=== PATIENT | male | born 1930 | race Caucasian/White ===

== ENCOUNTER 2016-04-27 19:52 | Emergency (ER) | payer MEDICARE, BC ==
[2016-04-27 20:13] VITALS: RESP 20
[2016-04-27 21:08] LABS: Basophils % (A) 0 %; CH 31.9; CHCM 33.1; Eosinophils # (A) 0.1 k/uL (0-0.7); Eosinophils % (A) 2 %; HDW 2.59; HGB 14.5 gm/dL (13.0-17.5); Luc # (Auto) 0.09; Luc % (Auto) 1; Lymphocytes # (A) 0.7 k/uL (1.0-4.8); Lymphocytes % (A) 9 %; MCH 31.1 pg (25.0-35.0); MCHC 32.1 g/dL (31.0-37.0); MCV 96.9 fL (80.0-100.0); Mean Platelet Volume 7.4; Monocytes # (A) 0.3 k/uL (0-1.0); Monocytes % (A) 4 %; Neutrophils # (A) 6.4 k/uL (1.3-7.7); Neutrophils % (A) 84 %; RBC 4.65 m/uL (4.30-5.90); RDW 13.6 % (11.5-15.5); WBC 7.6 k/uL (3.8-10.6); WBC (Perox) 7.66
--- NOTE | 2016-04-27 21:11 | XR ---
EXAMINATION TYPE: XR chest 1V portable DATE OF EXAM: 04/27/2016 9:03 PM COMPARISON: 12/25/2013 HISTORY: Altered mental status TECHNIQUE: Single frontal view of the chest is obtained. FINDINGS: There is no heart failure nor confluent pneumonic infiltrate. There are no hilar masses. T here are sternal wires. Heart size is normal. There are chest leads. IMPRESSION: No active cardiopulmonary disease. There is clearing of pleural fluid on the left side c ompared to old exam.
[2016-04-27 21:16] LABS: ALT 36 U/L (21-72); AST 26 U/L (17-59); Alkaline Phosphatase 78 U/L (38-126); Anion Gap 9 mmol/L; Blood Urea Nitrogen 26 mg/dL (9-20); Calcium 9.4 mg/dL (8.4-10.2); Carbon Dioxide 29 mmol/L (22-30); Chloride 102 mmol/L (98-107); Glucose 89 mg/dL (74-99); Non-African American GFR(MDRD) 57 (>60 ml/min/1.73 sqM); Potassium 4.3 mmol/L (3.5-5.1); Sodium 140 mmol/L (137-145); Total Bilirubin 0.8 mg/dL (0.2-1.3)
[2016-04-27 21:22] LABS: Partial Thromboplastin Time 23.9 sec (22.0-30.0); Prothrombin Time 10.5 sec (9.0-12.0)
[2016-04-27 21:28] LABS: Creatine Kinase 43 U/L (55-170)
--- NOTE | 2016-04-27 21:32 | CT ---
EXAMINATION TYPE: CT brain wo con DATE OF EXAM: 04/27/2016 9:25 PM COMPARISON: 05/02/2015 HISTORY: Increased confusion. CT DLP: 995.50 mGycm Automated exposure control for dose reduction was used. FINDINGS: There is moderate patchy hypodensity in the periventricular white matter and worse in both posterior parietal lobes. There is no mass effect nor midline shift. There is enlargement of the ventricles. Th ere is no sign of intracranial hemorrhage. The calvarium is intact. There is mucosal thickening in th e ethmoid sinus. IMPRESSION: Normal pressure type hydrocephalus. Cerebral atrophy. Bilateral parietal white matter small vessel is chemia. No acute intracranial abnormality. No change compared to old exam. There is new ethmoid sinusitis compared to old exam.
[2016-04-27 21:41] LABS: Creatine Kinase MB 0.5 ng/mL (0.0-2.4); Troponin I <0.012 ng/mL (0.000-0.034)
[2016-04-27] MEDS ORDERED: ACETAMINOPHEN TAB 500 MG TAB PO STA (22:00)
--- NOTE | 2016-04-27 22:47 | ED ---
Altered Mental Status HPI - General Chief Complaint: Altered Mental Status Stated Complaint: altered mental status/weakness Time Seen by Provider: 04/27/16 20:23 Source: patient, family Mode of arrival: wheelchair Limitations: no limitations - History of Present Illness Initial Comments: This patient is an 86-year-old man brought to be evaluated for altered mental status. Most of the patient's history is from the patient's and from his son. The patient had an episode in which she was speaking with his son on the phone and was not able to express himself coherently. The patient's son states that the speech was not slurred, was not making sense. Patient does have history of dementia, but this was definitely worse than his usual dementia symptoms. The patient's states that there did not appear to be any unilateral weakness or facial droop. There does not appear to be dysphagia. They report that the speech appears to be back to baseline now. Note that on the review of systems, the patient had been bowling earlier today and complained of left temporal headache. They removed the patient's left hearing aid, and then a short time later he had the pain recur at the right temporal area. The patient states that there is no headache currently. MD Complaint: altered mental status Onset/Timin -: hour(s) Severity: moderate Consistency of Symptoms: unknown (Improved) Associated Symptoms: denies other symptoms - Related Data Home Medications Medication Instructions Recorded Confirmed Alfuzosin 10 mg PO PC-SUPPER 07/07/13 04/27/16 Donepezil [Aricept] 10 mg PO BID 07/07/13 04/27/16 Lmfol Ca/Acetyl/Mb12/Algal Oil 1 tab PO PC-SUPPER 12/01/13 04/27/16 [Cerefolin Nac Caplet] Aspirin EC [Ecotrin Low Dose] 162 mg PO DAILY 04/27/16 04/27/16 Cholecalciferol [Vitamin D3] 1,000 unit PO DAILY 04/27/16 04/27/16 Cyanocobalamin (Vitamin B-12) 2,000 mcg PO DAILY 04/27/16 04/27/16 [Vitamin B-12] Escitalopram [Lexapro] 10 mg PO HS 04/27/16 04/27/16 Memantine [Namenda] 10 mg PO BID 04/27/16 04/27/16 Sennosides [Senna] 8.6 mg PO HS 04/27/16 04/27/16 Previous Rx's Medication Instructions Recorded Atorvastatin [Lipitor] 40 mg PO DAILY #30 tab 12/11/13 Carvedilol [Coreg] 3.125 mg PO AC-BID #60 tab 12/11/13 Lisinopril [Zestril] 2.5 mg PO DAILY #30 tab 12/11/13 Allergies Allergy/AdvReac Type Severity Reaction Status Date / Time No Known Allergies Allergy Verified 04/27/16 20:13 Review of Systems ROS Statement: Those systems with pertinent positive or pertinent negative responses have been documented in the HPI. ROS Other: All systems not noted in ROS Statement are negative. Constitutional: Reports: fever. Denies: chills, weakness Respiratory: Denies: cough, dyspnea, wheezes Cardiovascular: Denies: chest pain, palpitations, edema Gastrointestinal: Denies: abdominal pain, vomiting, diarrhea Genitourinary: Denies: dysuria Musculoskeletal: Denies: back pain Neurological: Reports: as per HPI, headache Past Medical History Past Medical History: Coronary Artery Disease (CAD), Chest Pain / Angina, CVA/ TIA, Dementia, Eye Disorder, Hyperlipidemia, Memory Impairment, Myocardial Infarction (NM), Osteoarthritis (OA), Prostate Disorder Additional Past Medical History / Comment(s): RECENT HX CP, TIRED, EPISODE OF SYNCOPE; HAD C. CATH IN [place], 11/20/13. AORTIC VALVE STENOSIS. "LEAKY HEART VALVE ". SOME DEMENTIA. Last Myocardial Infarction Date:: 2012 History of Any Multi-Drug Resistant Organisms: None Reported Past Surgical History: Bowel Resection, Heart Catheterization, Heart Catheterization With Stent, Hernia Repair, Joint Replacement, Tonsillectomy Additional Past Surgical History / Comment(s): TOTAL RT HIP; CATARACT SURGERY, PTCA; C. 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 Absent: scleral icterus, conjunctival injection ENT exam: Present: mucous membranes dry Neck exam: Present: normal inspection, full ROM. Absent: tenderness, meningismus Respiratory exam: Present: normal lung sounds bilaterally. Absent: respiratory distress, wheezes, rales, rhonchi, stridor Cardiovascular Exam: Present: regular rate, normal rhythm, systolic murmur. Absent: diastolic murmur, rubs, gallop GI/Abdominal exam: Present: soft. Absent: distended, tenderness, guarding, rebound, mass Extremities exam: Present: normal inspection, normal capillary refill. Absent: pedal edema, calf tenderness Back exam: Present: normal inspection. Absent: CVA tenderness (R), CVA tenderness (L) Neurological exam: Present: alert, CN II-XII intact, other (Patient's GCS is 15. The speech is clear.). Absent: oriented X3 (The patient is oriented to person and place but did not know the exact date.), motor sensory deficit Psychiatric exam: Present: normal affect Skin exam: Present: warm, dry, intact, normal color. Absent: rash Course Vital Signs 04/27/16 20:11 Temperature 98 F Pulse Rate 81 Respiratory 20 Rate Blood Pressure 154/73 O2 Sat by Pulse 99 Oximetry Medical Decision Making - Medical Decision Making I discussed the findings with the patient and his family. After much discussion , the family would like to take the patient home tonight because they're concerned about the milieu affect of being in the hospital. They will follow with Dr. Rossi in the morning regarding the CT and as follow-up. They will follow-up regarding having the urine checked, given the fever. - Lab Data Result diagrams: 04/27/16 20:40 04/27/16 20:40 Lab Results 04/27/16 04/27/16 04/27/16 Range/Units 20:40 20:40 20:40 WBC 7.6 (3.8-10.6) k/uL RBC 4.65 (4.30-5.90) m/uL Hgb 14.5 (13.0-17.5) gm/dL Hct 45.0 (39.0-53.0) % MCV 96.9 (80.0-100.0) fL MCH 31.1 (25.0-35.0) pg MCHC 32.1 (31.0-37.0) g/dL RDW 13.6 (11.5-15.5) % Plt Count 157 (150-450) k/uL Neutrophils % 84 % Lymphocytes % 9 % Monocytes % 4 % Eosinophils % 2 % Basophils % 0 % Neutrophils # 6.4 (1.3-7.7) k/uL Lymphocytes # 0.7 L (1.0-4.8) k/uL Monocytes # 0.3 (0-1.0) k/uL Eosinophils # 0.1 (0-0.7) k/uL Basophils # 0.0 (0-0.2) k/uL PT (9.0-12.0) sec INR (<1.1) APTT (22.0-30.0) sec Sodium 140 (137-145) mmol/L Potassium 4.3 (3.5-5.1) mmol/L Chloride 102 (98-107) mmol/L Carbon Dioxide 29 (22-30) mmol/L Anion Gap 9 mmol/L BUN 26 H (9-20) mg/dL Creatinine 1.21 (0.66-1.25) mg/dL Est GFR (MDRD) Af Amer >60 (>60 ml/min/1.73 sqM) Est GFR (MDRD) Non-Af 57 (>60 ml/min/1.73 sqM) Glucose 89 (74-99) mg/dL Calcium 9.4 (8.4-10.2) mg/dL Total Bilirubin 0.8 (0.2-1.3) mg/dL AST 26 (17-59) U/L ALT 36 (21-72) U/L Alkaline Phosphatase 78 (38-126) U/L Total Creatine Kinase 43 L (55-170) U/L CK-MB (CK-2) 0.5 (0.0-2.4) ng/mL CK-MB (CK-2) Rel Index 1.2 Troponin I <0.012 (0.000-0.034) ng/mL Total Protein 7.0 (6.3-8.2) g/dL Albumin 4.1 (3.5-5.0) g/dL Influenza Type A RNA (Not Detectd) Influenza Type B (PCR) (Not Detectd) 04/27/16 04/27/16 Range/Units 20:40 22:04 WBC (3.8-10.6) k/uL RBC (4.30-5.90) m/uL Hgb (13.0-17.5) gm/dL Hct (39.0-53.0) % MCV (80.0-100.0) fL MCH (25.0-35.0) pg MCHC (31.0-37.0) g/dL RDW (11.5-15.5) % Plt Count (150-450) k/uL Neutrophils % % Lymphocytes % % Monocytes % % Eosinophils % % Basophils % % Neutrophils # (1.3-7.7) k/uL Lymphocytes # (1.0-4.8) k/uL Monocytes # (0-1.0) k/uL Eosinophils # (0-0.7) k/uL Basophils # (0-0.2) k/uL PT 10.5 (9.0-12.0) sec INR 1.0 (<1.1) APTT 23.9 (22.0-30.0) sec Sodium (137-145) mmol/L Potassium (3.5-5.1) mmol/L Chloride (98-107) mmol/L Carbon Dioxide (22-30) mmol/L Anion Gap mmol/L BUN (9-20) mg/dL Creatinine (0.66-1.25) mg/dL Est GFR (MDRD) Af Amer (>60 ml/min/1.73 sqM) Est GFR (MDRD) Non-Af (>60 ml/min/1.73 sqM) Glucose (74-99) mg/dL Calcium (8.4-10.2) mg/dL Total Bilirubin (0.2-1.3) mg/dL AST (17-59) U/L ALT (21-72) U/L Alkaline Phosphatase (38-126) U/L Total Creatine Kinase (55-170) U/L CK-MB (CK-2) (0.0-2.4) ng/mL CK-MB (CK-2) Rel Index Troponin I (0.000-0.034) ng/mL Total Protein (6.3-8.2) g/dL Albumin (3.5-5.0) g/dL Influenza Type A RNA Not Detected (Not Detectd) Influenza Type B (PCR) Not Detected (Not Detectd) - EKG Data -: EKG Interpreted by Me EKG shows normal: sinus rhythm (Rate 73 bpm), axis (Normal), intervals (VA interval is 212 ms, axis of with first-degree AV block), QRS complexes (Normal) , ST-T waves (Normal) Disposition Clinical Impression: Altered mental status, Fever, Normal pressure hydrocephalus Narrative: Aphasia, resolved Disposition: Left Against Medical Advice Condition: Fair Instructions: Altered Mental Status (ED) Additional Instructions: As we discussed, definitely have the urine checked in the morning. Follow up with Dr. Rossi regarding the findings from the CAT scan. If there is any difficulty in following up please return to the emergency department. Referrals: Miguelina Diallo MD [Primary Care Provider] - 1-2 days Bhavesh Rossi DO [STAFF PHYSICIAN] - 1-2 days
[2016-04-27 23:09] VITALS: BP 133/56; PULSE 100; TEMP 100
== END 2016-04-27 23:12 | disposition left against medical advice (07) ==
LOC: EC 19:52
DX: R41.82 Altered mental status, unspecified (principal); G91.9 Hydrocephalus, unspecified; R50.9 Fever, unspecified; I25.10 Atherosclerotic heart disease of native coronary artery without angina pectoris; F03.90 Unspecified dementia, unspecified severity, without behavioral disturbance, psychotic disturbance, mood disturbance, and anxiety; E78.5 Hyperlipidemia, unspecified; I25.2 Old myocardial infarction; M19.90 Unspecified osteoarthritis, unspecified site; Z87.891 Personal history of nicotine dependence; Z79.82 Long term (current) use of aspirin; Z79.899 Other long term (current) drug therapy
CPT/HCPCS: 36415; 70450; 71010; 80053; 82550; 82553; 84484; 85025; 85610; 85730; 87502; 93005; 99285

== ENCOUNTER → 2017-04-03 | Outpatient (CLI) | payer MEDICARE, BC ==
[2017-04-03 10:25] LABS: ALT 27 U/L (21-72); AST 24 U/L (17-59); Albumin 3.5 g/dL (3.5-5.0); Alkaline Phosphatase 65 U/L (38-126); Anion Gap 7 mmol/L; Blood Urea Nitrogen 24 mg/dL (9-20); Calcium 9.3 mg/dL (8.4-10.2); Carbon Dioxide 32 mmol/L (22-30); Chloride 105 mmol/L (98-107); Cholesterol 154 mg/dL (<200); Glucose 87 mg/dL (74-99); HDL Cholesterol 54 mg/dL (40-60); LDL Cholesterol,Calculated 80 mg/dL (0-99); Sodium 144 mmol/L (137-145); Total Bilirubin 0.7 mg/dL (0.2-1.3); Triglycerides 101 mg/dL (<150)
[2017-04-03 10:30] LABS: Potassium 4.3 mmol/L (3.5-5.1)
== END | disposition home or self-care (01) ==
LOC: LABWHC1 09:36
PROVIDERS: ATTEND Internal Medicine Interventional Cardiology
DX: E78.2 Mixed hyperlipidemia (principal)
CPT/HCPCS: 36415; 80053; 80061